=== PATIENT | female | born 1950 | race African-American/Black ===

== ENCOUNTER 2023-10-11 12:59 | Inpatient (IN) | payer OTHER ==
[~2023-10-11] VITALS: Ht 172.7 cm; Wt 83.9 kg
[2023-10-11 13:32] LABS: HEMATOCRIT 36 % (33-45); LYMPHOCYTES # (AUTO) 1.1 K/uL (0.8-4.8); LYMPHOCYTES % (AUTO) 23.7 % (20.0-44.0); MEAN CORPUSCULAR HEMOGLOBIN 30 PG (26.0-33.0); MEAN CORPUSCULAR HGB CONC 33 g/dl (31.0-36.0); MEAN CORPUSCULAR VOLUME 91 fL (82-100); MONOCYTES # (AUTO) 0.2 K/uL (0.1-1.30); NEUTROPHILS # (AUTO) 3.3 K/uL (1.8-8.9); NEUTROPHILS % (AUTO) 70.3 % (43.0-81.0); PLATELET COUNT (AUTO) 425 K/uL (150-450); RED BLOOD CELL COUNT(AUTO) 3.98 MIL/uL (4.0-5.2); RED CELL DISTRIBUTION WIDTH 15.2 % (11.5-15.0); WHITE BLOOD COUNT (AUTO) 4.7 K/uL (4.3-11.0)
[2023-10-11 13:39] LABS: CARBON DIOXIDE 30 mmol/L (21-32); CHLORIDE 102 mmol/L (98-107); CREATININE 1.1 mg/dL (0.6-1.3); GLUCOSE 114 mg/dL (74-106); POTASSIUM 4.7 mmol/L (3.5-5.1); SODIUM SERUM 136 mmol/L (136-145); UREA NITROGEN, BLOOD 26 mg/dL (7-18)
[2023-10-11] MEDS ORDERED: LACT-246 PO (13:48)
[2023-10-11] MEDS ORDERED: TRAZ-182 PO (13:48)
[2023-10-11] MEDS ORDERED: MOME13HF IH (13:48)
[2023-10-11] MEDS ORDERED: CALC-261 PO (13:48)
[2023-10-11] MEDS ORDERED: DOCU250C14 PO (13:48)
[2023-10-11] MEDS ORDERED: QUET100T PO (13:48)
[2023-10-11] MEDS ORDERED: AMLO5TAB4 PO (13:48)
[2023-10-11] MEDS ORDERED: MULT-213 PO (13:48)
[2023-10-11] MEDS ORDERED: GABA-532 PO (13:48)
[2023-10-11] MEDS ORDERED: LEVE500T20 PO (13:48)
[2023-10-11] MEDS ORDERED: DIVA-76 PO (13:48)
[2023-10-11] MEDS ORDERED: PRED20TA PO (13:48)
[2023-10-11 16:00] VITALS: BP 128/78; TEMP 97.7; O2SAT 100
[2023-10-11] MEDS ORDERED: Z GUARD REMEDY 4 OZ OINT TP PRN (18:00)
[2023-10-11] MEDS ORDERED: ONDANSETRON HCL/PF 4 MG/2 ML VIAL IVP PRN (18:00)
[2023-10-11] MEDS: IV NS 0.9% 1,000 ML IV PRN (18:08)
[2023-10-11] MEDS: ONDANSETRON HCL/PF 4 MG/2 ML VIAL IV ONE (18:41)
[2023-10-11] MEDS: ENOXAPARIN SODIUM 40 MG/0.4 ML DISP.SYRIN SQ SCH (18:42)
[2023-10-11 18:49] LABS: THYROID STIMULATING HORMONE 0.47 uIU/mL (0.358-3.74)
[2023-10-11] MEDS: ALBUTEROL FS 2.5 MG/3 ML VIAL.NEB NEB SCH (19:30)
[2023-10-11 20:00] VITALS: BP 118/71; TEMP 97.7; O2SAT 98
[2023-10-11] MEDS: TRAZODONE 50 MG TABLET PO SCH (21:14)
[2023-10-11] MEDS: QUETIAPINE FUMARATE 100 MG TABLET PO SCH (21:14)
[2023-10-11] MEDS: LEVETIRACETAM (250 MG) 250 MG TABLET PO SCH (21:16)
[2023-10-11] MEDS: MAGNESIUM HYDROXIDE 30 ML UDC PO PRN (23:51)
[2023-10-12] VITALS (12 sets, daily range): BP systolic 107–125; BP diastolic 57–92; TEMP 97.5–98.6; O2SAT 94–100
[2023-10-12] MEDS: BISACODYL (5 MG) 5 MG TABLET.DR PO PRN ×2 (00:32→11:16)
[2023-10-12] MEDS: BUDESONIDE RESPULE INH 0.5 MG/2 ML AMPUL.NEB HHN SCH (08:40)
[2023-10-12] MEDS: MORPHINE SULFATE INJ 2 MG/ML DISP.SYRIN IV PRN (08:43)
[2023-10-12] MEDS: PANTOPRAZOLE 40 MG TABLET.DR PO SCH (08:50)
[2023-10-12] MEDS: ENSURE ENLIVE 237 ML LIQUID (VANILLA) PO SCH (09:00)
[2023-10-12] MEDS: AMLODIPINE BESYLATE 5 MG TABLET PO SCH (09:00)
[2023-10-12 09:35] LABS: BASOPHILS % (AUTO) 0.8 % (0.0-2.0); EOSINOPHILS # (AUTO) 0.1 K/uL (0.0-0.7); EOSINOPHILS % (AUTO) 3.1 % (0.0-6.0); HEMATOCRIT 34 % (33-45); HEMOGLOBIN 11.1 g/dL (11.5-14.8); LYMPHOCYTES # (AUTO) 2.3 K/uL (0.8-4.8); LYMPHOCYTES % (AUTO) 57.9 % (20.0-44.0); MEAN CORPUSCULAR HEMOGLOBIN 31 PG (26.0-33.0); MEAN CORPUSCULAR HGB CONC 33 g/dl (31.0-36.0); MEAN CORPUSCULAR VOLUME 92 fL (82-100); MONOCYTES # (AUTO) 0.3 K/uL (0.1-1.30); MONOCYTES % (AUTO) 7.8 % (2.0-12.0); NEUTROPHILS # (AUTO) 1.2 K/uL (1.8-8.9); NEUTROPHILS % (AUTO) 30.4 % (43.0-81.0); PLATELET COUNT (AUTO) 383 K/uL (150-450); RED BLOOD CELL COUNT(AUTO) 3.64 MIL/uL (4.0-5.2); RED CELL DISTRIBUTION WIDTH 15.2 % (11.5-15.0)
[2023-10-12 09:49] LABS: CALCIUM, SERUM 8.5 mg/dL (8.5-10.1); CARBON DIOXIDE 29 mmol/L (21-32); CHLORIDE 104 mmol/L (98-107); CREATININE 1.1 mg/dL (0.6-1.3); GLUCOSE 76 mg/dL (74-106); MAGNESIUM 1.9 mg/dL (1.8-2.4); PHOSPHORUS 3.5 mg/dL (2.5-4.9); POTASSIUM 3.9 mmol/L (3.5-5.1); SODIUM SERUM 139 mmol/L (136-145); UREA NITROGEN, BLOOD 24 mg/dL (7-18)
[2023-10-12] MEDS: DIVALPROEX SODIUM 250 MG TABLET.DR PO SCH (09:50)
[2023-10-12] MEDS: predniSONE 20 MG TABLET PO SCH (09:51)
[2023-10-12] MEDS: GABAPENTIN 100 MG CAPSULE PO SCH (09:51)
[2023-10-12] MEDS: DOCUSATE SODIUM 250 MG CAPSULE PO SCH (09:52)
[2023-10-12] MEDS: ASPIRIN EC 81 MG TABLET.DR PO SCH (09:52)
[2023-10-12] MEDS ORDERED: CELE200C PO (12:26)
[2023-10-12] MEDS ORDERED: PANT40TA49 PO (12:26)
[2023-10-12] MEDS ORDERED: ATOR40TA PO (12:26)
[2023-10-12] MEDS ORDERED: Aspirin Ec PO (12:26)
== END 2023-10-12 16:05 | disposition short-term general hospital (02) | DRG 918 ==
LOC: ER 13:02 → TELE 16:52
PROVIDERS: ADMIT Nurse Practitioner Acute Care; ATTEND Nurse Practitioner Acute Care
DX: T65.291A Toxic effect of other tobacco and nicotine, accidental (unintentional), initial encounter (principal); Z59.00 Homelessness unspecified; R09.1 Pleurisy; I25.10 Atherosclerotic heart disease of native coronary artery without angina pectoris; F20.9 Schizophrenia, unspecified; F32.A Depression, unspecified; G40.909 Epilepsy, unspecified, not intractable, without status epilepticus; J44.9 Chronic obstructive pulmonary disease, unspecified; I10 Essential (primary) hypertension; F41.9 Anxiety disorder, unspecified; Z88.6 Allergy status to analgesic agent; Z88.1 Allergy status to other antibiotic agents; Z88.5 Allergy status to narcotic agent; Z79.899 Other long term (current) drug therapy; F19.90 Other psychoactive substance use, unspecified, uncomplicated; Z79.51 Long term (current) use of inhaled steroids; Z91.199 Patient's noncompliance with other medical treatment and regimen due to unspecified reason; Z91.51 Personal history of suicidal behavior; Z79.82 Long term (current) use of aspirin; Z72.0 Tobacco use; Y92.9 Unspecified place or not applicable
CPT/HCPCS: 36415; 71045-TC; 80048-TC; 80061-TC; 83735-TC; 84100-TC; 84443-TC; 84484-TC; 85025-TC; 87081-TC; 93307-TC; 94799-TC; A4223; G0378; J1650; J2270; J2405; J7030

== ENCOUNTER 2023-10-12 16:43 | Inpatient (IN) | payer OTHER ==
[~2023-10-12] VITALS: Ht 170.2 cm; Wt 83.9 kg
[~2023-10-12 16:43] MED LIST: AMLO5TAB4 PO; ATOR40TA PO; Aspirin Ec PO; CALC-261 PO; CELE200C PO; DIVA-76 PO; DOCU250C14 PO; GABA-532 PO; LACT-246 PO; LEVE500T20 PO; MOME13HF IH; MULT-213 PO; PANT40TA49 PO; PRED20TA PO; QUET100T PO; TRAZ-182 PO
[2023-10-12] MEDS: IV NS 0.9% 1,000 ML BAG IV ONE (17:39)
[2023-10-12] MEDS: LEVETIRACETAM (500MG) 1,000 MG in IV NS 0.9% 90 ML IV SCH (17:39)
[2023-10-12 17:52] LABS: BASOPHILS % (AUTO) 0.5 % (0.0-2.0); EOSINOPHILS % (AUTO) 0.2 % (0.0-6.0); HEMATOCRIT 36 % (33-45); HEMOGLOBIN 11.7 g/dL (11.5-14.8); LYMPHOCYTES # (AUTO) 0.7 K/uL (0.8-4.8); LYMPHOCYTES % (AUTO) 13.2 % (20.0-44.0); MEAN CORPUSCULAR HEMOGLOBIN 30 PG (26.0-33.0); MEAN CORPUSCULAR HGB CONC 33 g/dl (31.0-36.0); MEAN CORPUSCULAR VOLUME 92 fL (82-100); MONOCYTES # (AUTO) 0.2 K/uL (0.1-1.30); NEUTROPHILS # (AUTO) 4.1 K/uL (1.8-8.9); NEUTROPHILS % (AUTO) 83.1 % (43.0-81.0); PLATELET COUNT (AUTO) 377 K/uL (150-450); RED BLOOD CELL COUNT(AUTO) 3.86 MIL/uL (4.0-5.2); RED CELL DISTRIBUTION WIDTH 14.7 % (11.5-15.0)
[2023-10-12 17:59] LABS: CALCIUM, SERUM 8.6 mg/dL (8.5-10.1); CREATININE 1.1 mg/dL (0.6-1.3)
[2023-10-12 18:05] LABS: ALBUMIN 2.5 g/dL (3.4-5.0); BILIRUBIN,DIRECT 0.1 mg/dL (0.0-0.2); BILIRUBIN,TOTAL 0.1 mg/dL (0.2-1.0); TOTAL PROTEIN, SERUM 6.8 g/dL (6.4-8.2)
[2023-10-12] MEDS ORDERED: Z GUARD REMEDY 4 OZ OINT TP PRN (18:30)
[2023-10-12] MEDS ORDERED: HYDROCODONE/APAP 5/325MG TABLET PO PRN (18:30)
[2023-10-12] MEDS ORDERED: ONDANSETRON HCL/PF 4 MG/2 ML VIAL IVP PRN (18:30)
[2023-10-12 19:32] LABS: APPEARANCE,URINE CLEAR (CLEAR); BILIRUBIN,URINE NEGATIVE (NEGATIVE); BLOOD, URINE NEGATIVE Ery/uL (NEGATIVE); COLOR,URINE YELLOW (YELLOW); KETONES,URINE NEGATIVE (NEGATIVE); LEUKOCYTE ESTERASE ,URINE NEGATIVE (NEGATIVE); NITRITE, URINE NEGATIVE (NEGATIVE); PH,URINE 6.5 (5.0-8.0); PROTEIN,URINE NEGATIVE (NEGATIVE); UGLUCOSE NEGATIVE (NEGATIVE); UROBILINOGEN,URINE 0.2 EU/dL (0.2)
[2023-10-12] MEDS ORDERED: LORAZEPAM INJ 2 MG/ML VIAL IV PRN (20:00)
[2023-10-12 20:20] VITALS: O2SAT 95
[2023-10-12] MEDS: BUDESONIDE RESPULE INH 0.5 MG/2 ML AMPUL.NEB NEB SCH (20:20)
[2023-10-12 20:30] VITALS: O2SAT 99
[2023-10-12 20:37] VITALS: BP 112/68; TEMP 98.2; O2SAT 97
[2023-10-12 20:38] VITALS: BP 112/68; TEMP 98.2; O2SAT 97
[2023-10-12] MEDS: DIVALPROEX SODIUM 500 MG TABLET.DR PO ONE (22:12)
[2023-10-12] MEDS: QUETIAPINE FUMARATE 100 MG TABLET PO SCH (22:12)
[2023-10-13] VITALS (7 sets, daily range): BP systolic 131–140; BP diastolic 73–81; TEMP 97.5–97.7; O2SAT 96–100
[2023-10-13] MEDS: PANTOPRAZOLE 40 MG TABLET.DR PO SCH (06:34)
[2023-10-13] MEDS: LEVETIRACETAM (250 MG) 250 MG TABLET PO SCH (06:34)
[2023-10-13] MEDS: MULTIVIT W/MINERALS 1 TAB TABLET PO SCH (08:13)
[2023-10-13] MEDS: CELECOXIB 100 MG CAPSULE PO SCH (08:13)
[2023-10-13] MEDS: DOCUSATE SODIUM 250 MG CAPSULE PO SCH (08:14)
[2023-10-13] MEDS: GABAPENTIN 100 MG CAPSULE PO SCH (08:14)
[2023-10-13] MEDS: DIVALPROEX SODIUM 250 MG TABLET.DR PO SCH (08:14)
[2023-10-13] MEDS: ASPIRIN EC 81 MG TABLET.DR PO SCH (08:14)
[2023-10-13] MEDS: CALCIUM CARB 600MG /VIT D 1 EACH TABLET PO SCH (08:18)
[2023-10-13] MEDS ORDERED: LEVETIRACETAM (250 MG) 250 MG TABLET PO SCH (09:00)
[2023-10-13] MEDS ORDERED: DIVALPROEX SODIUM 250 MG TABLET.DR PO SCH (09:00)
[2023-10-13] MEDS: NA PHOS,M-B/NA PHOS,DI-BA 1 EA ENEMA RC ONE (10:01)
[2023-10-13] MEDS: AZITHROMYCIN 250 MG TABLET PO ONE (10:40)
[2023-10-13] MEDS: POLYETHYLENE GLYCOL 3350 17 GM POWD.PACK PO SCH (10:40)
[2023-10-13 12:50] LABS: CALCIUM, SERUM 9.4 mg/dL (8.5-10.1); CREATININE 1.1 mg/dL (0.6-1.3); PHOSPHORUS 4.4 mg/dL (2.5-4.9); POTASSIUM 3.2 mmol/L (3.5-5.1)
[2023-10-13 12:51] LABS: BASOPHILS % (AUTO) 0.4 % (0.0-2.0); EOSINOPHILS # (AUTO) 0.1 K/uL (0.0-0.7); EOSINOPHILS % (AUTO) 1.9 % (0.0-6.0); HEMATOCRIT 34 % (33-45); LYMPHOCYTES # (AUTO) 2.6 K/uL (0.8-4.8); LYMPHOCYTES % (AUTO) 54.6 % (20.0-44.0); MEAN CORPUSCULAR HEMOGLOBIN 30 PG (26.0-33.0); MEAN CORPUSCULAR HGB CONC 33 g/dl (31.0-36.0); MEAN CORPUSCULAR VOLUME 91 fL (82-100); MONOCYTES # (AUTO) 0.3 K/uL (0.1-1.30); NEUTROPHILS # (AUTO) 1.8 K/uL (1.8-8.9); NEUTROPHILS % (AUTO) 37.1 % (43.0-81.0); PLATELET COUNT (AUTO) 359 K/uL (150-450); RED BLOOD CELL COUNT(AUTO) 3.69 MIL/uL (4.0-5.2); RED CELL DISTRIBUTION WIDTH 14.6 % (11.5-15.0); WHITE BLOOD COUNT (AUTO) 4.8 K/uL (4.3-11.0)
[2023-10-13 13:02] LABS: THYROID STIMULATING HORMONE 0.78 uIU/mL (0.358-3.74)
[2023-10-13] MEDS: MAGNESIUM HYDROXIDE 30 ML UDC PO PRN (14:25)
[2023-10-13] MEDS: BUDESONIDE RESPULE INH 0.5 MG/2 ML AMPUL.NEB NEB SCH (16:05)
[2023-10-13] MEDS: POTASSIUM CHLORIDE 10 MEQ TABLET.SA PO ONE (16:10)
[2023-10-13] MEDS: ATORVASTATIN 40 MG TABLET PO SCH (17:45)
[2023-10-13] MEDS: ALBUTEROL FS 2.5 MG/3 ML VIAL.NEB NEB SCH (19:30)
[2023-10-13] MEDS: BISACODYL (5 MG) 5 MG TABLET.DR PO SCH (21:06)
[2023-10-13 21:37] LABS: CHOLESTEROL 188 mg/dL (<200); HDL CHOLESTEROL 51 mg/dL (40-60); LDL 111 mg/dL (0-99); TRIGLYCERIDES 125 mg/dL (30-150)
[2023-10-13] MEDS: ACETAMINOPHEN 325 MG TABLET PO PRN (23:47)
[2023-10-14] MEDS: LEVETIRACETAM (250 MG) 250 MG TABLET PO SCH (05:30)
[2023-10-14] MEDS: IV NS 0.9% 1,000 ML IV PRN (05:30)
[2023-10-14] MEDS: AZITHROMYCIN 250 MG TABLET PO SCH (08:36)
[2023-10-14] MEDS: BISACODYL (5 MG) 5 MG TABLET.DR PO ONE (09:10)
[2023-10-14 09:50] VITALS: BP 107/56; TEMP 98.3; O2SAT 99
[2023-10-14] MEDS ORDERED: LEVE500T9 PO (10:38)
[2023-10-14] MEDS ORDERED: DIVA500T2 PO (10:38)
[2023-10-14] MEDS ORDERED: AZIT250T13 PO (10:38)
[2023-10-14 12:00] VITALS: BP_SYST 110; BP_SYST 114; BP_DIAS 58; BP_DIAS 66; TEMP 98.1; O2SAT 94; O2SAT 99
[2023-10-14 14:00] VITALS: O2SAT 96
[2023-10-14 14:10] VITALS: O2SAT 100
[2023-10-14] MEDS ORDERED: CARBAMIDE PEROXIDE OTIC 15 ML BOTTLE RIGHT EAR ONE (17:00)
[2023-10-15 09:11] LABS: FOLIC ACID > 20.0 ng/mL (>3.0)
== END 2023-10-14 14:30 | disposition short-term general hospital (02) | DRG 101 ==
LOC: ER 16:50 → TELE 19:05
PROVIDERS: ADMIT Nurse Practitioner Family; ATTEND Nurse Practitioner Family
DX: G40.909 Epilepsy, unspecified, not intractable, without status epilepticus (principal); E44.0 Moderate protein-calorie malnutrition; F32.A Depression, unspecified; F20.9 Schizophrenia, unspecified; I10 Essential (primary) hypertension; J06.9 Acute upper respiratory infection, unspecified; Z68.20 Body mass index [BMI] 20.0-20.9, adult; F41.9 Anxiety disorder, unspecified; Z88.6 Allergy status to analgesic agent; Z88.5 Allergy status to narcotic agent; Z88.8 Allergy status to other drugs, medicaments and biological substances; Z91.018 Allergy to other foods; Z79.82 Long term (current) use of aspirin; Z79.51 Long term (current) use of inhaled steroids; Z79.899 Other long term (current) drug therapy; R79.89 Other specified abnormal findings of blood chemistry; E88.09 Other disorders of plasma-protein metabolism, not elsewhere classified; F19.10 Other psychoactive substance abuse, uncomplicated; J44.9 Chronic obstructive pulmonary disease, unspecified; F17.200 Nicotine dependence, unspecified, uncomplicated; K59.00 Constipation, unspecified; H61.21 Impacted cerumen, right ear; L29.9 Pruritus, unspecified; F10.10 Alcohol abuse, uncomplicated; Y90.9 Presence of alcohol in blood, level not specified
CPT/HCPCS: 36415; 70450-TC; 71045-TC; 80048-TC; 80061-TC; 80076-TC; 80164-TC; 82607-TC; 83735-TC; 83921; 84100-TC; 84443-TC; 85025-TC; 87081-TC; 94760-TC; 94762-TC; 94799-TC; A4223; G0378; J1953; J7030

== ENCOUNTER 2023-10-14 15:38 | Inpatient (IN) | payer OTHER ==
[~2023-10-14] VITALS: Ht 177.8 cm; Wt 62.6 kg
[~2023-10-14 15:38] MED LIST changes: +AZIT250T13 PO; +DIVA500T2 PO; +LEVE500T9 PO
[2023-10-14 16:05] LABS: BASOPHILS % (AUTO) 0.7 % (0.0-2.0); EOSINOPHILS # (AUTO) 0.1 K/uL (0.0-0.7); EOSINOPHILS % (AUTO) 3.1 % (0.0-6.0); HEMATOCRIT 42 % (33-45); HEMOGLOBIN 13.7 g/dL (11.5-14.8); LYMPHOCYTES # (AUTO) 2.4 K/uL (0.8-4.8); LYMPHOCYTES % (AUTO) 64.1 % (20.0-44.0); MEAN CORPUSCULAR HEMOGLOBIN 30 PG (26.0-33.0); MEAN CORPUSCULAR HGB CONC 33 g/dl (31.0-36.0); MEAN CORPUSCULAR VOLUME 90 fL (82-100); MONOCYTES # (AUTO) 0.2 K/uL (0.1-1.30); MONOCYTES % (AUTO) 4.8 % (2.0-12.0); NEUTROPHILS % (AUTO) 27.3 % (43.0-81.0); PLATELET COUNT (AUTO) 417 K/uL (150-450); RED BLOOD CELL COUNT(AUTO) 4.61 MIL/uL (4.0-5.2); RED CELL DISTRIBUTION WIDTH 14.4 % (11.5-15.0); WHITE BLOOD COUNT (AUTO) 3.7 K/uL (4.3-11.0)
[2023-10-14] MEDS ORDERED: LORAZEPAM INJ 2 MG/ML VIAL ONE (16:05)
[2023-10-14 16:18] LABS: CREATININE 1.2 mg/dL (0.6-1.3); POTASSIUM 4.4 mmol/L (3.5-5.1)
[2023-10-14] MEDS: IV NS 0.9% 500 ML BAG IV ONE (16:25)
[2023-10-14] MEDS: LORAZEPAM INJ 2 MG/ML VIAL IVP ONE (16:25)
[2023-10-14] MEDS: LEVETIRACETAM (500MG) 1,000 MG in IV NS 0.9% 90 ML IV SCH ×2 (16:30→21:10)
[2023-10-14] MEDS: DIVALPROEX SODIUM 500 MG TABLET.DR PO SCH (17:00)
[2023-10-14] MEDS: PANTOPRAZOLE 40 MG VIAL IV SCH (17:00)
[2023-10-14] MEDS ORDERED: ACETAMINOPHEN 325 MG TABLET PO PRN (17:00)
[2023-10-14] MEDS ORDERED: Z GUARD REMEDY 4 OZ OINT TP PRN (17:00)
[2023-10-14] MEDS ORDERED: MAGNESIUM HYDROXIDE 30 ML UDC PO PRN (17:00)
[2023-10-14] MEDS: ENSURE ENLIVE 237 ML LIQUID (VANILLA) PO SCH (17:00)
[2023-10-14] MEDS ORDERED: ONDANSETRON HCL/PF 4 MG/2 ML VIAL IVP PRN (17:00)
[2023-10-14] MEDS ORDERED: LORAZEPAM INJ 2 MG/ML VIAL IV PRN (17:00)
[2023-10-14] MEDS: GABAPENTIN 100 MG CAPSULE PO SCH (17:00)
[2023-10-14] MEDS ORDERED: MAG HYDROX/AL HYDROX/SIMETH 30 ML UDC PO PRN (17:00)
[2023-10-14 17:20] LABS: APPEARANCE,URINE Clear (CLEAR); BILIRUBIN,URINE Negative (NEGATIVE); BLOOD, URINE Negative Ery/uL (NEGATIVE); COLOR,URINE YELLOW (YELLOW); KETONES,URINE Negative (NEGATIVE); LEUKOCYTE ESTERASE ,URINE Negative (NEGATIVE); NITRITE, URINE Negative (NEGATIVE); PH,URINE 5.5 (5.0-8.0); PROTEIN,URINE Negative (NEGATIVE); UGLUCOSE Negative (NEGATIVE); UROBILINOGEN,URINE 0.2 EU/dL (0.2)
[2023-10-14] MEDS: CALCIUM CARB 600MG /VIT D 1 EACH TABLET PO SCH (17:30)
[2023-10-14] MEDS: BUDESONIDE RESPULE INH 0.5 MG/2 ML AMPUL.NEB NEB SCH (18:00)
[2023-10-14] MEDS: ATORVASTATIN 40 MG TABLET PO SCH (18:00)
[2023-10-14] MEDS: ALBUTEROL FS 2.5 MG/3 ML VIAL.NEB NEB SCH (19:30)
[2023-10-14] MEDS: MORPHINE SULFATE INJ 2 MG/ML DISP.SYRIN IV ONE (20:00)
[2023-10-14] MEDS: TRAZODONE 50 MG TABLET PO SCH (22:00)
[2023-10-14] MEDS: QUETIAPINE FUMARATE 100 MG TABLET PO SCH (22:00)
[2023-10-15] MEDS: IV D5/0.45 NACL 1,000 ML IV PRN (02:01)
[2023-10-15 07:17] LABS: BASOPHILS % (AUTO) 0.6 % (0.0-2.0); EOSINOPHILS # (AUTO) 0.1 K/uL (0.0-0.7); EOSINOPHILS % (AUTO) 3.1 % (0.0-6.0); HEMATOCRIT 34 % (33-45); HEMOGLOBIN 11.3 g/dL (11.5-14.8); LYMPHOCYTES # (AUTO) 2.2 K/uL (0.8-4.8); LYMPHOCYTES % (AUTO) 55.9 % (20.0-44.0); MEAN CORPUSCULAR HEMOGLOBIN 31 PG (26.0-33.0); MEAN CORPUSCULAR HGB CONC 34 g/dl (31.0-36.0); MEAN CORPUSCULAR VOLUME 91 fL (82-100); MONOCYTES # (AUTO) 0.3 K/uL (0.1-1.30); MONOCYTES % (AUTO) 7.3 % (2.0-12.0); NEUTROPHILS # (AUTO) 1.3 K/uL (1.8-8.9); NEUTROPHILS % (AUTO) 33.1 % (43.0-81.0); PLATELET COUNT (AUTO) 351 K/uL (150-450); RED BLOOD CELL COUNT(AUTO) 3.71 MIL/uL (4.0-5.2); RED CELL DISTRIBUTION WIDTH 14.7 % (11.5-15.0); WHITE BLOOD COUNT (AUTO) 3.9 K/uL (4.3-11.0)
[2023-10-15 07:55] LABS: CALCIUM, SERUM 8.4 mg/dL (8.5-10.1); MAGNESIUM 1.8 mg/dL (1.8-2.4); PHOSPHORUS 3.7 mg/dL (2.5-4.9)
[2023-10-15 08:00] VITALS: BP 137/78; TEMP 97.9; O2SAT 100
[2023-10-15] MEDS: DOCUSATE SODIUM 250 MG CAPSULE PO SCH (09:00)
[2023-10-15] MEDS: MULTIVITAMINS,THERAGRAN 1 UDTAB TABLET PO SCH (09:00)
[2023-10-15] MEDS: ASPIRIN 81 MG TAB.CHEW PO SCH (09:00)
[2023-10-15] MEDS: CELECOXIB 100 MG CAPSULE PO SCH (09:00)
[2023-10-15 12:00] VITALS: BP 127/86; TEMP 98.1; O2SAT 100
[2023-10-15 16:00] VITALS: BP 134/76; TEMP 97.3; O2SAT 100
[2023-10-15 20:00] VITALS: BP 111/69; TEMP 97.7; O2SAT 100
[2023-10-16] VITALS (7 sets, daily range): BP systolic 87–117; BP diastolic 43–62; TEMP 97.8–97.9; O2SAT 97–100
[2023-10-16] MEDS: IV NS 0.9% 500 ML IV ONE (00:11)
[2023-10-16] MEDS: ACETAMINOPHEN 325 MG TABLET PO PRN (05:14)
[2023-10-16] MEDS: PANTOPRAZOLE 40 MG TABLET.DR PO SCH (08:11)
[2023-10-16] MEDS: LEVETIRACETAM (250 MG) 250 MG TABLET PO SCH (08:12)
[2023-10-16] MEDS ORDERED: DIVA500T4 PO (10:27)
[2023-10-16] MEDS ORDERED: LEVE1000 PO (10:27)
== END 2023-10-16 14:53 | disposition short-term general hospital (02) | DRG 101 ==
LOC: ER 15:40 → TELE1 10-15 00:02
PROVIDERS: ADMIT Nurse Practitioner Acute Care; ATTEND Nurse Practitioner Acute Care
DX: G40.909 Epilepsy, unspecified, not intractable, without status epilepticus (principal); F03.93 Unspecified dementia, unspecified severity, with mood disturbance; F03.94 Unspecified dementia, unspecified severity, with anxiety; F03.92 Unspecified dementia, unspecified severity, with psychotic disturbance; K21.9 Gastro-esophageal reflux disease without esophagitis; J44.9 Chronic obstructive pulmonary disease, unspecified; F20.9 Schizophrenia, unspecified; E78.5 Hyperlipidemia, unspecified; Z79.899 Other long term (current) drug therapy; Z88.6 Allergy status to analgesic agent; I10 Essential (primary) hypertension; E11.9 Type 2 diabetes mellitus without complications; Z88.1 Allergy status to other antibiotic agents; Z88.5 Allergy status to narcotic agent; F32.A Depression, unspecified; Z79.51 Long term (current) use of inhaled steroids; F17.200 Nicotine dependence, unspecified, uncomplicated; F41.9 Anxiety disorder, unspecified; F43.21 Adjustment disorder with depressed mood; F29 Unspecified psychosis not due to a substance or known physiological condition; R79.89 Other specified abnormal findings of blood chemistry; F19.90 Other psychoactive substance use, unspecified, uncomplicated; F10.10 Alcohol abuse, uncomplicated; Y90.9 Presence of alcohol in blood, level not specified
CPT/HCPCS: 36415; 80048-TC; 80164-TC; 82962-TC; 83735-TC; 84100-TC; 84484-TC; 85025-TC; 87081-TC; 92526; 92611-TC; 94762-TC; A4223; C9113; G0378; J1953; J2060; J3490; J7030; J7040